=== PATIENT | female | born 1935 | race Caucasian/White ===

== ENCOUNTER → 2016-12-10 | Outpatient (CLI) | payer OTHER, BC ==
[~2016-12-10] MED LIST: ASPIR 8181 M1 PO; BENADRYL25 MG PO; CALCIUM500 M1 PO; CYCLOBENZAPRINE5 MG PO; ELIQUIS5 MG PO; FENTANYL PATCH75 MCG TRANSDERM; FLORINEF ACETA0.1 MG PO; FOLIC ACID 40400 MCG PO; GABAPENTIN 100100 MG PO; LIDODERM 5%1 PATC1 TRANSDERM; LOPERAMIDE 2 MG2 M1 PO; LOPRESSOR25 PO; METHOTREXATE 22.5 MG PO; MIDODRINE HCL 55 M1 PO; NORVASC5 MG PO; OMEPRAZOLE20 M1 PO; ONDANSETRON HCL4 M2 PO; OXYCONTIN10 M1 PO; PERCOCET PO; PLAVIX 75 MG TA75 M1 PO; PROBIOTIC1 EAC1 PO; PROTONIX 20 MG20 M1 PO; PYRIDOSTIGMINE60 M1 PO; REGLAN 5 MG TAB5 MG PO; SLOW-MAG64 MG PO; TART CHERRY CA1 EACH PO; TOPROL XL25 MG PO; TYLENOL PM EX-1 EACH PO; TYLENOL325 MG PO; XARELTO20 MG PO; ZANTAC 150MG T150 MG PO
== END ==
LOC: PUL 11:15
DX: R06.02 Shortness of breath (principal)